=== PATIENT | female | born 1965 | race African-American/Black ===

== ENCOUNTER 2017-05-23 13:13 | Emergency (ER) | payer SELFPAY ==
[2017-05-23] MEDS ORDERED: Ondansetron 4 MG Tab.DIS PO ONE (14:09)
--- NOTE | 2017-05-23 14:14 | EDM.PDOC ---
ED HPI GENERAL MEDICAL PROBLEM - General Chief Complaint: Neurological Problem Stated Complaint: DIZZY Time Seen by Provider: 05/23/17 13:52 Source of Information: Reports: Patient History Limitations: Reports: No Limitations - History of Present Illness INITIAL COMMENTS - FREE TEXT/NARRATIVE: Patient is a 51-year-old female presents ED complaining of cold like symptoms for the past week. She's had a headache on and off and as of this morning developed some dizziness. Patient took 3 doses of cough suppressant with dexamethorphan as the main ingredient. States the cough and sinus congestion have improved but states with taking 3 times the suggested dose in a 12 hr period of the dexamethorphan she developed dizziness, nausea, and fatigue. She' s also been taking ibuprofen for headaches with resolution. In addition she was diagnosed with a sinus infection about one month ago placed on amoxicillin with resolution of sinus congestion with mild discomfort to the left maxillary sinusitis that has persisted. She's been utilizing OTC Flonase in addition to the above [id number] medications. States all symptoms except for the nausea have resolved. She is concerned that she overdosed on the OTC cough syrup. She denies any sore throat, ear pain, vision changes, dizziness, chest pain, shortness of breath, abdominal pain, fever, focal neurological deficits, teeth pain, body aches, or any additional complaints. She's been drinking and eating well. - Related Data Allergies Allergy/AdvReac Type Severity Reaction Status Date / Time No Known Allergies Allergy Verified 05/23/17 13:31 Home Meds: Home Meds Ondansetron [Zofran ODT] 4 mg PO Q6H PRN #10 tab.dis 05/23/17 [Rx] Past Medical History - Past Health History Medical/Surgical History: Denies Medical/Surgical History Social & Family History - Tobacco Use Smoking Status *Q: Never Smoker - Recreational Drug Use Recreational Drug Use: No ED ROS GENERAL - Review of Systems Review Of Systems: ROS reveals no pertinent complaints other than HPI. ED EXAM, DIZZINESS - Physical Exam Exam: See Below Exam Limited By: No Limitations General Appearance: Alert, WD/WN, No Apparent Distress Eye Exam: Bilateral Eye: PERRL Ears: Normal External Exam, Normal Canal, Hearing Grossly Normal, Normal TMs Nose: Normal Inspection, Normal Mucosa, No Blood Throat/Mouth: Normal Inspection, Normal Oropharynx, Normal Voice, No Airway Compromise Head Exam: Atraumatic, Normocephalic Neck: Normal Inspection, Supple, Non-Tender. No: Lymphadenopathy (L), Lymphadenopathy (R) Respiratory/Chest: No Respiratory Distress, Lungs Clear, Normal Breath Sounds, No Accessory Muscle Use, Chest Non-Tender Cardiovascular: Normal Peripheral Pulses, Regular Rate, Rhythm, No Murmur GI/Abdominal: Normal Bowel Sounds, Soft, Non-Tender, No Organomegaly, No Distention Neurological: Alert, Normal Mood/Affect, Normal Dorsiflexion, CN II-XII Intact, Normal Plantar Flexion, No Motor/Sensory Deficits, Oriented x 3, Other (No nystagmus. No weakness to upper/lower extremities. ) Back Exam: Normal Inspection Extremities: Normal Inspection, Non-Tender, No Pedal Edema Psychiatric: Normal Affect, Normal Mood Skin Exam: Warm, Dry, Intact, Normal Color Course - Vital Signs Last Recorded V/S: Last Vital Signs Temp 98.8 F 05/23/17 13:31 Pulse 84 05/23/17 13:31 Resp 17 05/23/17 13:31 BP 145/94 H 05/23/17 13:31 Pulse Ox 100 05/23/17 13:31 - Orders/Labs/Meds Meds: Medications Discontinued Medications Generic Name Dose Route Start Last Admin Trade Name Freq PRN Reason Stop Dose Admin Ondansetron HCl 4 mg 05/23/17 14:09 05/23/17 14:24 Zofran Odt PO 05/23/17 14:10 4 mg ONETIME ONE Administration - Re-Assessments/Exams Free Text/Narrative Re-Assessment/Exam: Ordered zofran 4mg ODT. Patient refuses any additional tests or treatments. All symptoms minus nausea have resolved. Suspect cause of dizziness is due to taking three times the normal dose of dextromethorphan. Common reactions with taking dextromethorphan include: nausea, dizziness, abdominal pain, drowsiness, and fatigue. Patient will continue on flonase, ibuprofen, and nasal saline spray. No addition of antibiotic at this point. She will see pcp on followup. Departure - Departure Time of Disposition: 14:17 Disposition: Home, Self-Care 01 Condition: Good Clinical Impression: Nausea, Dizziness, Viral upper respiratory tract infection with cough - Discharge Information Prescriptions: Ondansetron [Zofran ODT] 4 mg PO Q6H PRN #10 tab.dis PRN Reason: Nausea/Vomiting Instructions: Nausea, Adult, Viral Respiratory Infection, [id number], Nausea , Adult, [id number], Dizziness, [id number] Referrals: PCP,None [Primary Care Provider] - Forms: ED Department Discharge Additional Instructions: Continue to push the fluids. Utilize flonase 1 spray twice a day. Nasal saline spray throughout the day as needed. Continue taking ibuprofen 600mg every 6 hrs for headache.Take with food and plenty of water. Followup with PCP in one week for reevaluation. Return to the E.D. for any new or worsening symptoms. Suggest taking the dextromethorphan per [employer]'s instructions. Do not take any in excess. Stop taking if you develop any adverse symptoms as discussed.
== END 2017-05-23 14:32 | disposition home or self-care (01) ==
LOC: JD.ED 13:13
DX: R42 Dizziness and giddiness (principal); R11.0 Nausea; J06.9 Acute upper respiratory infection, unspecified
CPT/HCPCS: 99283; A9270